=== PATIENT | female | born 1970 | race Hispanic/Latino ===

== ENCOUNTER 2017-07-01 01:13 | Emergency (ER) | payer MEDICAID, OTHER ==
[2017-07-01] MEDS ORDERED: ACETAMINOPHEN EXTRA STRENGTH 500 MG TABLET ONE (03:11)
[2017-07-01 04:09] LABS: BASOPHILS % (AUTO) 0.4 % (0.0-5.0); EOSINOPHILS % (AUTO) 1.7 % (0.0-8.0); HEMATOCRIT 37.2 % (36-48); LYMPHOCYTES % (AUTO) 24.4 % (21.0-51.0); MEAN CORPUSCULAR HEMOGLOBIN 29.3 pg (27.0-33.0); MEAN CORPUSCULAR HGB CONC 33.9 g/dL (32.0-36.0); MEAN CORPUSCULAR VOLUME 86.2 fL (79-99); MONOCYTES % (AUTO) 5.5 % (3.0-13.0); PLATELET COUNT (AUTO) 263 K/uL (130-400); RED BLOOD CELL COUNT(AUTO) 4.31 MIL/uL (4.00-5.50); RED CELL DISTRIBUTION WIDTH 12.9 % (11.0-15.5)
[2017-07-01 04:17] LABS: CREATININE 0.9 mg/dL (0.5-1.5); POTASSIUM 3.7 mmol/L (3.5-5.1)
[2017-07-01 04:19] LABS: APPEARANCE,URINE CLEAR (CLEAR); BILIRUBIN,URINE NEGATIVE (NEGATIVE); COLOR,URINE YELLOW (YELLOW); GLUCOSE, URINE (UA) NEGATIVE (NEGATIVE); KETONES,URINE NEGATIVE (NEGATIVE); LEUKOCYTE ESTERASE ,URINE TRACE (NEGATIVE); NITRATE,URINE NEGATIVE (NEGATIVE); OCCULT BLOOD,URINE NEGATIVE (NEGATIVE); PH,URINE 5.5 (5.0-8.0); PROTEIN,URINE NEGATIVE (NEGATIVE); UROBILINOGEN,URINE 0.2 mg/dL (0.2-1.0)
[2017-07-01 04:26] LABS: BACTERIA,URINE None Seen /HPF (None Seen); MUCUS,URINE Few LPF (None Seen); RBC,URINE None Seen /HPF (0-1); SQUAMOUS EPITHELIAL CELL,UR Rare /LPF (0-2); WBC,URINE 0-1 /HPF (0-1)
[2017-07-01] MEDS ORDERED: KETOROLAC TROMETHAMINE 60 MG/2 ML VIAL ONE (04:53)
[2017-07-01] MEDS ORDERED: MORPHINE SULFATE 2 MG/ML 1ML SYG ONE (05:46)
== END 2017-07-01 06:29 | disposition home or self-care (01) ==
LOC: EDH 01:13
DX: M79.604 Pain in right leg (principal); M79.605 Pain in left leg; M54.5 Low back pain; E11.9 Type 2 diabetes mellitus without complications; E78.5 Hyperlipidemia, unspecified; I10 Essential (primary) hypertension; Z79.4 Long term (current) use of insulin
CPT/HCPCS: 36415; 80048; 81001; 82550; 85025; 96372 ×2; 99284; J1885

== ENCOUNTER 2022-06-09 14:10 | Emergency (ER) | payer MEDICAID, OTHER ==
[~2022-06-09] VITALS: Ht 152.4 cm; Wt 90.3 kg
[2022-06-09 15:50] LABS: BASOPHILS % (AUTO) 0.4 % (0.0-5.0); EOSINOPHILS % (AUTO) 2.7 % (0.0-8.0); LYMPHOCYTES % (AUTO) 38.2 % (21.0-51.0); MEAN CORPUSCULAR HEMOGLOBIN 28.5 pg (27.0-33.0); MEAN CORPUSCULAR HGB CONC 32.1 g/dL (32.0-36.0); MEAN CORPUSCULAR VOLUME 88.7 fL (79-99); MONOCYTES % (AUTO) 5.8 % (3.0-13.0); NEUTROPHILS % (AUTO) 52.5 % (40.0-77.0); PLATELET COUNT (AUTO) 238 K/uL (130-400); RED BLOOD CELL COUNT(AUTO) 4.85 MIL/uL (4.00-5.50); RED CELL DISTRIBUTION WIDTH 13.9 % (11.0-15.5); WHITE BLOOD COUNT (AUTO) 11.7 K/uL (4.8-10.8)
[2022-06-09 15:51] VITALS: BP 123/66
[2022-06-09 16:00] LABS: CREATININE 0.8 mg/dL (0.5-1.5); POTASSIUM 3.9 mmol/L (3.5-5.1)
[2022-06-09 16:09] LABS: ALBUMIN 3.5 g/dL (3.5-5.0); TOTAL PROTEIN, SERUM 8.1 g/dL (6.0-8.3)
[2022-06-09] MEDS ORDERED: IPRATROPIUM 0.5 MG/2.5 ML INH IH ONE (16:15)
[2022-06-09] MEDS ORDERED: ALBUTEROL 0.083% 2.5 MG/3 ML INH IH ONE (16:15)
[2022-06-09] MEDS ORDERED: SOLU-MEDROL 125MG VIAL IVP ONE (16:15)
[2022-06-09 16:30] LABS: B-TYPE NATRIURETIC PEPTIDE 22 pg/mL (0-100)
[2022-06-09] MEDS ORDERED: ALBUTEROL 0.083% 2.5 MG/3 ML INH IH STA (18:10)
[2022-06-09] MEDS ORDERED: PRED5TAB44 PO (18:49)
[2022-06-09] MEDS ORDERED: ALBU6.7H14 IH (18:49)
== END 2022-06-09 18:55 | disposition home or self-care (01) ==
LOC: EDH 14:10
DX: J45.909 Unspecified asthma, uncomplicated (principal); E11.9 Type 2 diabetes mellitus without complications; E78.00 Pure hypercholesterolemia, unspecified; I10 Essential (primary) hypertension; Z20.822 Contact with and (suspected) exposure to COVID-19
CPT/HCPCS: 99285; 96374; 71045; 87635; 84484 ×2; 80053; 83880; 85025; 85378; 87804 ×2; 36415; 93005; 94640 ×2; C9803; J2930

== ENCOUNTER 2024-10-08 20:14 | Emergency (ER) | payer SELFPAY ==
[~2024-10-08] VITALS: Ht 152.4 cm; Wt 86.2 kg
[~2024-10-08 20:14] MED LIST: ACET-66 PO; ALBU6.7H14 IH; AMOX1TAB16 PO; PRED5TAB44 PO
[2024-10-08 20:15] VITALS: BP 148/99; PULSE 77; RESP 16; TEMP 98.7
--- NOTE | 2024-10-08 20:17 | NUR ---
UA CUP PROVIDED
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
--- NOTE | 2024-10-08 21:31 | NUR ---
PT CALLED, NO ANSWER, NOT LOCATED IN ER OR MAIN ER
--- NOTE | 2024-10-08 21:44 | NUR ---
PT CALLED, NO ANSWER, NOT IN LOBBY
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
--- NOTE | 2024-10-08 21:51 | NUR ---
PT NOT IN LOBBY, NO ANSWER WHEN CALLED, NO COMMUNICATION WITH STAFF ON DESIRE TO LEAVE.
--- NOTE | 2024-10-08 22:02 | NUR ---
JOE LANDAVERDE NOTIFIED THAT PATIENT AND FAMILY NO LONGER IN LOBBY
== END 2024-10-08 21:31 | disposition left against medical advice (07) ==
LOC: EDH 20:14
DX: R10.31 Right lower quadrant pain (principal); E11.9 Type 2 diabetes mellitus without complications; E78.00 Pure hypercholesterolemia, unspecified; I10 Essential (primary) hypertension; Z79.52 Long term (current) use of systemic steroids; Z53.21 Procedure and treatment not carried out due to patient leaving prior to being seen by health care provider